=== PATIENT | female | born 1995 | race Caucasian/White ===

== ENCOUNTER 2019-08-29 17:19 | Emergency (ER) | payer SELFPAY ==
[~2019-08-29] VITALS: Ht 157.5 cm; Wt 52.2 kg
[~2019-08-29 17:19] MED LIST: PEPCID20 MG PO; ZOFRAN ODT4 MG PO
[2019-08-29] MEDS ORDERED: DOXYCYCLINE HY100 MG PO (17:51)
== END 2019-08-29 18:06 | disposition home or self-care (01) ==
LOC: ED 17:19
DX: B00.1 Herpesviral vesicular dermatitis (principal); F17.200 Nicotine dependence, unspecified, uncomplicated
CPT/HCPCS: 99282

== ENCOUNTER 2019-12-11 22:01 | Emergency (ER) | payer SELFPAY ==
[~2019-12-11] VITALS: Ht 157.5 cm; Wt 52.2 kg
[~2019-12-11 22:01] MED LIST changes: +DOXYCYCLINE HY100 MG PO
== END 2019-12-11 22:24 | disposition home or self-care (01) ==
LOC: ED 22:01
DX: Z03.89 Encounter for observation for other suspected diseases and conditions ruled out (principal); F17.200 Nicotine dependence, unspecified, uncomplicated
CPT/HCPCS: 99283

== ENCOUNTER 2019-12-17 05:58 | Emergency (ER) | payer SELFPAY ==
[~2019-12-17] VITALS: Ht 157.5 cm; Wt 52.2 kg
--- OUTSIDE RECORDS SUMMARY | 2019-12-17 06:00 | XMS ---
PreManage Notification: CHANELL RICE Security Mass Spec Events No recent Security Events currently on file CRITERIA MET - [facility] - 2 Visits in 30 Days CARE PROVIDERS There are no care providers on record at this time. Hugo has no Care Guidelines for this patient. Juan Carlos VISIT COUNT (12 MO.) [address] [facility] TOTAL 3 NOTE: Visits indicate total known visits. ED/C VISIT TRACKING (12 MO.) 12/17/2019 05:[address] [facility] [place] TYPE: Emergency COMPLAINT: - SKIN PROBLEM 12/11/2019 22:02 [facility] [place] TYPE: Emergency COMPLAINT: - FOREIGN OBJECT DIAGNOSES: - Encntr for obs for oth suspected diseases and cond ruled out - Nicotine dependence, unspecified, uncomplicated 08/29/2019 17:20 [facility] [place] TYPE: Emergency COMPLAINT: - SKIN PROBLEM DIAGNOSES: - Herpesviral vesicular dermatitis - Nicotine dependence, unspecified, uncomplicated - Disorder of the skin and subcutaneous tissue, unspecified INPATIENT VISIT TRACKING (12 MO.) No inpatient visits to display in this time frame [id number]
[2019-12-17] MEDS ORDERED: CYCLOBENZAPRINE10 MG PO (06:29)
[2019-12-17] MEDS ORDERED: DICLOFENAC SODI75 MG PO (06:29)
== END 2019-12-17 06:42 | disposition home or self-care (01) ==
LOC: ED 05:58
DX: M54.2 Cervicalgia (principal); F17.200 Nicotine dependence, unspecified, uncomplicated; Z88.8 Allergy status to other drugs, medicaments and biological substances
CPT/HCPCS: 99283

== ENCOUNTER 2019-12-26 13:48 | Emergency (ER) | payer SELFPAY ==
[~2019-12-26] VITALS: Ht 157.5 cm; Wt 51.3 kg
[~2019-12-26 13:48] MED LIST changes: +CYCLOBENZAPRINE10 MG PO; +DICLOFENAC SODI75 MG PO
--- OUTSIDE RECORDS SUMMARY | 2019-12-26 13:52 | XMS ---
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 Hugo has no Care Guidelines for this patient. Care History Medical/Surgical 12/23/[address] [facility] - CHW IS UNABLE TO CONTACT PATIENT- PATIENT DOES NOT HAVE INSURANCE- NO PCP - PLEASE CONTACT JACQUELINE [phone] IF PATIENT IS SEEN IN THE ED- TO HELP APPLY FOR STATE INSURANCE - W WILL SEND NO PCP LETTER TO PATIENT. EAsif VISIT COUNT (12 MO.) 5 [facility] TOTAL 5 NOTE: Visits indicate total known visits. ED/UCC VISIT TRACKING (12 MO.) 12/26/2019 13:48 [facility] [place] TYPE: Emergency COMPLAINT: - SKIN PROBLEM 12/24/2019 21:05 [facility] [place] TYPE: Emergency COMPLAINT: - SKIN PROBLEM DIAGNOSES: - Acute upper respiratory infection, unspecified - Nicotine dependence, unspecified, uncomplicated - Allergy status to oth drug/meds/biol subst status 12/17/2019 05:58 [facility] [place] TYPE: Emergency COMPLAINT: - SKIN PROBLEM DIAGNOSES: - Nicotine dependence, unspecified, uncomplicated - Allergy status to oth drug/meds/biol subst status - Cervicalgia 12/11/2019 22:02 [facility] [place] TYPE: Emergency COMPLAINT: - FOREIGN OBJECT DIAGNOSES: - Encntr for obs for oth suspected diseases and cond ruled out - Nicotine dependence, unspecified, uncomplicated 08/29/2019 17:20 [facility] [place] TYPE: Emergency COMPLAINT: - SKIN PROBLEM DIAGNOSES: - Herpesviral vesicular dermatitis - Nicotine dependence, unspecified, uncomplicated - Disorder of the skin and subcutaneous tissue, unspecified INPATIENT VISIT TRACKING (12 MO.) No inpatient visits to display in this time frame [id number]
[2019-12-26] MEDS ORDERED: TRAZODONE HCL50 MG PO (14:43)
== END 2019-12-26 15:03 | disposition home or self-care (01) ==
LOC: ED 13:48
DX: F22 Delusional disorders (principal); G47.00 Insomnia, unspecified; F17.200 Nicotine dependence, unspecified, uncomplicated; Z88.8 Allergy status to other drugs, medicaments and biological substances
CPT/HCPCS: 99284

== ENCOUNTER 2020-04-19 22:40 | Emergency (ER) | payer OTHER ==
[~2020-04-19] VITALS: Ht 157.5 cm; Wt 51.3 kg
[~2020-04-19 22:40] MED LIST changes: +TRAZODONE HCL50 MG PO
--- OUTSIDE RECORDS SUMMARY | 2020-04-19 22:42 | XMS ---
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 Hugo has no Care Guidelines for this patient. Care History Medical/Surgical 12/28/2019 [facility] - W CONTACTED PATIENT- PATIENT APPLIED FOR STATE INSURANCE TODAY AT [facility]. SHE NEEDS TO PROVIDE PAY STUB INFORMATION IN ORDER TO APPLY SHE WILL BE PROVIDING THAT LATER TODAY. - CHW PROVIDED LOCAL PROVIDERS IN THE AREA THAT ARE ACCEPTING NEW PATIENTS. PATIENT WILL FOLLOW UP ONCE APPROVED FOR INSURANCE. - PATIENT RECENTLY LAID OFF WORK AT [employer] DUE TO FLOODING. CURRENT INCOME HAS CHANGED. CHW STATED FOR PATIENT TO APPLY FOR FOOD STAMPS AT [facility] AND TO CONTACT [facility] FOR ENERGY ASSISTANCE. 12/23/2019 [facility] - W IS UNABLE TO CONTACT PATIENT- PATIENT DOES NOT HAVE INSURANCE- NO PCP - PLEASE CONTACT JACQUELINE [phone] IF PATIENT IS SEEN IN THE ED- TO HELP APPLY FOR STATE INSURANCE - W WILL SEND NO PCP LETTER TO PATIENT. E.D. VISIT COUNT (12 MO.) 6 [facility] TOTAL 6 NOTE: Visits indicate total known visits. ED/UCC VISIT TRACKING (12 MO.) 04/19/2020 22:40 [facility] [place] TYPE: Emergency COMPLAINT: - FINGER INJ 12/26/2019 13:48 [facility] [place] TYPE: Emergency COMPLAINT: - SKIN PROBLEM DIAGNOSES: - Delusional disorders - Allergy status to other drugs, medicaments and biological sub - Insomnia, unspecified - Nicotine dependence, unspecified, uncomplicated - Delusional disorders 12/24/2019 21:05 [facility] [place] TYPE: Emergency COMPLAINT: - SKIN PROBLEM DIAGNOSES: - Acute upper respiratory infection, unspecified - Nicotine dependence, unspecified, uncomplicated - Allergy status to other drugs, medicaments and biological sub 12/17/2019 05:58 [facility] [place] TYPE: Emergency COMPLAINT: - SKIN PROBLEM DIAGNOSES: - Nicotine dependence, unspecified, uncomplicated - Allergy status to other drugs, medicaments and biological sub - Cervicalgia 12/11/2019 22:02 [facility] [place] TYPE: Emergency COMPLAINT: - FOREIGN OBJECT DIAGNOSES: - Encounter for observation for other suspected diseases and co - Nicotine dependence, unspecified, uncomplicated 08/29/2019 17:20 [facility] [place] TYPE: Emergency COMPLAINT: - SKIN PROBLEM DIAGNOSES: - Herpesviral vesicular dermatitis - Nicotine dependence, unspecified, uncomplicated - Disorder of the skin and subcutaneous tissue, unspecified INPATIENT VISIT TRACKING (12 MO.) No inpatient visits to display in this time frame [id number]
[2020-04-19] MEDS ORDERED: OLANZAPINE10 MG PO (22:51)
== END 2020-04-20 00:22 | disposition home or self-care (01) ==
LOC: ED 22:40
DX: S61.214A Laceration without foreign body of right ring finger without damage to nail, initial encounter (principal); F17.200 Nicotine dependence, unspecified, uncomplicated; Z88.8 Allergy status to other drugs, medicaments and biological substances; Z79.899 Other long term (current) drug therapy; W45.8XXA Other foreign body or object entering through skin, initial encounter
CPT/HCPCS: 12001; 90471; 90715; 99282-25

== ENCOUNTER 2020-06-19 13:52 | Emergency (ER) | payer OTHER ==
[~2020-06-19] VITALS: Ht 157.5 cm; Wt 51.3 kg
[~2020-06-19 13:52] MED LIST changes: +OLANZAPINE10 MG PO
--- OUTSIDE RECORDS SUMMARY | 2020-06-19 13:56 | XMS ---
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 Hugo has no Care Guidelines for this patient. Care History Medical/Surgical 12/28/2019 [facility] - W CONTACTED PATIENT- PATIENT APPLIED FOR STATE INSURANCE TODAY AT [facility]. SHE NEEDS TO PROVIDE PAY STUB INFORMATION IN ORDER TO APPLY SHE WILL BE PROVIDING THAT LATER TODAY. - CHW PROVIDED LOCAL PROVIDERS IN THE AREA THAT ARE ACCEPTING NEW PATIENTS. PATIENT WILL FOLLOW UP ONCE APPROVED FOR INSURANCE. - PATIENT RECENTLY LAID OFF WORK AT [place] DUE TO FLOODING. CURRENT INCOME HAS CHANGED. CHW STATED FOR PATIENT TO APPLY FOR FOOD STAMPS AT [facility] AND TO CONTACT [facility] FOR ENERGY ASSISTANCE. 12/23/2019 [facility] - W IS UNABLE TO CONTACT PATIENT- PATIENT DOES NOT HAVE INSURANCE- NO PCP - PLEASE CONTACT JACQUELINE [phone] IF PATIENT IS SEEN IN THE ED- TO HELP APPLY FOR STATE INSURANCE - W WILL SEND NO PCP LETTER TO PATIENT. E.D. VISIT COUNT (12 MO.) 7 [facility] TOTAL 7 NOTE: Visits indicate total known visits. ED/UCC VISIT TRACKING (12 MO.) 06/19/2020 13:53 [facility] [place] TYPE: Emergency COMPLAINT: - SUICIDAL THOUGHTS 04/19/2020 22:40 [facility] [place] TYPE: Emergency COMPLAINT: - FINGER INJ DIAGNOSES: - Other foreign body or object entering through skin, initial e - Laceration without foreign body of right ring finger without - Other extermination supervisor (current) drug therapy - Allergy status to other drugs, medicaments and biological sub - Nicotine dependence, unspecified, uncomplicated 12/26/2019 13:48 [facility] [place] TYPE: Emergency COMPLAINT: - SKIN PROBLEM DIAGNOSES: - Delusional disorders - Allergy status to other drugs, medicaments and biological sub - Insomnia, unspecified - Nicotine dependence, unspecified, uncomplicated - Delusional disorders 12/24/2019 21:05 [facility] [place] [place]: Emergency COMPLAINT: - SKIN [...] visits to display in this time frame [id number]
== END 2020-06-19 15:56 | disposition home or self-care (01) ==
LOC: ED 13:52
DX: R45.851 Suicidal ideations (principal); F17.200 Nicotine dependence, unspecified, uncomplicated; Z79.899 Other long term (current) drug therapy
CPT/HCPCS: 80053; 80176; 81001; 84443; 84703; 85025; 99284; G0480

== ENCOUNTER 2021-07-14 14:11 | Emergency (ER) | payer OTHER ==
[~2021-07-14] VITALS: Ht 157.5 cm; Wt 51.3 kg
--- OUTSIDE RECORDS SUMMARY | 2021-07-14 14:20 | XMS ---
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 Hugo has no Care Guidelines for this patient. Care History Medical/Surgical 12/28/2019 [facility] - W CONTACTED PATIENT- PATIENT APPLIED FOR STATE INSURANCE TODAY AT [facility]. SHE NEEDS TO PROVIDE PAY STUB INFORMATION IN ORDER TO APPLY SHE WILL BE PROVIDING THAT LATER TODAY. - CHW PROVIDED LOCAL PROVIDERS IN THE AREA THAT ARE ACCEPTING NEW PATIENTS. PATIENT WILL FOLLOW UP ONCE APPROVED FOR INSURANCE. - PATIENT RECENTLY LAID OFF WORK AT [place] DUE TO FLOODING. CURRENT INCOME HAS CHANGED. CHW STATED FOR PATIENT TO APPLY FOR FOOD STAMPS AT [facility] [facility] AND TO CONTACT [facility] FOR ENERGY ASSISTANCE. 12/23/2019 [facility] - W IS UNABLE TO CONTACT PATIENT- PATIENT DOES NOT HAVE INSURANCE- NO PCP - PLEASE CONTACT JACQUELINE [phone] IF PATIENT IS SEEN IN THE ED- TO HELP APPLY FOR STATE INSURANCE - W WILL SEND NO PCP LETTER TO PATIENT. E.D. VISIT COUNT (12 MO.) [address] [facility] TOTAL 1 NOTE: Visits indicate total known visits. ED/UCC VISIT TRACKING (12 MO.) 07/14/2021 14:12 [facility] [place] TYPE: Emergency COMPLAINT: - L ABDOMINAL PAIN INPATIENT VISIT TRACKING (12 MO.) No inpatient visits to display in this time frame [id number]
[2021-07-14] MEDS ORDERED: VRAYLAR1.5 MG PO (14:25)
== END 2021-07-14 18:45 | disposition home or self-care (01) ==
LOC: ED 14:11
DX: O99.891 Other specified diseases and conditions complicating pregnancy (principal); R10.32 Left lower quadrant pain; O99.331 Smoking (tobacco) complicating pregnancy, first trimester; F17.200 Nicotine dependence, unspecified, uncomplicated; Z88.8 Allergy status to other drugs, medicaments and biological substances; Z79.899 Other long term (current) drug therapy
CPT/HCPCS: 76801; 76817; 80053; 81001; 83690; 84702; 84703; 85007; 85025; 96374; 96375; 99284-25; J1170; J2405

== ENCOUNTER 2022-03-19 21:44 | Inpatient (IN) | payer OTHER ==
[~2022-03-19] VITALS: Ht 157.5 cm; Wt 72.6 kg
[~2022-03-19 21:44] MED LIST changes: +VRAYLAR1.5 MG PO
--- NOTE | 2022-03-20 08:38 | PR ---
[facility] [address] [place], [place] [address] Signed PP Progress Notes Datetime Report Generated by CPN: 03/20/2022 08:38 SUBJECTIVE: [id number] Pain: Within Normal Limits Nausea/Vomiting: Denies Vital Signs: [id number] Vital Signs: Reviewed; Within Normal Limits Notable Details: BP 135/74 EXAM: Ongoing IMPRESSION/PLAN/PROCEDURES: [id number] Impression: Normal Progression Plan: Continue Present Management Procedures: None Progress Notes: No complaints. Stable after delivery. Will continue to watch BP Signing Physician: Fabrice Cao MD Copies: ~ *Electronically Signed* 03/20/22837 FABRICE CAO MD PATIENT NAME: CHANELL RICE PROGRESS NOTE DATE OF : [birth year] PHYSICIAN: FABRICE CAO MD RPT #: [id number] REPORT IS CONFIDENTIAL AND NOT TO BE RELEASED WITHOUT AUTHORIZATION
== END 2022-03-21 11:45 | disposition home or self-care (01) | DRG 805 ==
LOC: FBCO 21:44 → FBC 22:17
PROVIDERS: ADMIT Obstetrics & Gynecology; ATTEND Obstetrics & Gynecology
PROC: 10E0XZZ Delivery of Products of Conception, External Approach (ICD-10-PCS; principal; 2022-03-20)
PROC: 3E0R3BZ Introduction of Anesthetic Agent into Spinal Canal, Percutaneous Approach (ICD-10-PCS; 2022-03-20)
PROC: 00HU33Z Insertion of Infusion Device into Spinal Canal, Percutaneous Approach (ICD-10-PCS; 2022-03-20)
PROC: 10907ZC Drainage of Amniotic Fluid, Therapeutic from Products of Conception, Via Natural or Artificial Opening (ICD-10-PCS; 2022-03-20)
DX: O99.344 Other mental disorders complicating childbirth (principal); O45.93 Premature separation of placenta, unspecified, third trimester; Z37.0 Single live birth; O13.4 Gestational [pregnancy-induced] hypertension without significant proteinuria, complicating childbirth; O77.0 Labor and delivery complicated by meconium in amniotic fluid; Z3A.39 39 weeks gestation of pregnancy; O69.81X0 Labor and delivery complicated by cord around neck, without compression, not applicable or unspecified; O99.334 Smoking (tobacco) complicating childbirth; F17.210 Nicotine dependence, cigarettes, uncomplicated; Z20.822 Contact with and (suspected) exposure to COVID-19; F31.9 Bipolar disorder, unspecified; Z98.890 Other specified postprocedural states; Z79.899 Other long term (current) drug therapy
CPT/HCPCS: 36415; 80053; 82570; 84156; 84550; 85027; 86850; 86900; 86901; 87502; A9270; J2540; J2590; J2795; J7121; U0003

== ENCOUNTER 2025-01-01 00:34 | Emergency (ER) | payer OTHER ==
[~2025-01-01] VITALS: Ht 152.4 cm; Wt 49.4 kg
[2025-01-01] MEDS ORDERED: TETRACAINE HCL 0.5% 4 ML BTL OS ONE (01:00)
[2025-01-01] MEDS ORDERED: FLUORESCEIN SOD 1 EA STRP OS ONE (01:00)
[2025-01-01 01:14] VITALS: BP 126/87
[2025-01-01] MEDS ORDERED: SULFACETAMIDE SODIUM 10% OPTH ONE (01:15)
== END 2025-01-01 01:14 | disposition home or self-care (01) ==
LOC: ED 00:34
DX: S05.02XA Injury of conjunctiva and corneal abrasion without foreign body, left eye, initial encounter (principal); W50.4XXA Accidental scratch by another person, initial encounter; F17.200 Nicotine dependence, unspecified, uncomplicated; Z88.8 Allergy status to other drugs, medicaments and biological substances
CPT/HCPCS: 99283